=== PATIENT | male | born 1960 | race Caucasian/White ===

== ENCOUNTER 2018-11-10 00:02 | Inpatient (IN) | payer OTHER, MEDICAID ==
[~2018-11-10] VITALS: Ht 190.5 cm; Wt 112.1 kg
--- NOTE | 2018-11-10 00:07 | NUR ---
PT HOLD IS PLACED IN PAPER CHART
--- NOTE | 2018-11-10 00:15 | NUR ---
PT BIB AMBULANCE TODAY WITH C/C OF EAR PAIN. PER MEDIC, AROUND 11 PM LAST NIGHT, PT BEGAN HAVING A BEHAVIORAL EPISODE AND PUNCHING HIMSELF IN THE EARS. PT WAS GIVEN 5MG HALDOL, 1MG ATIVAN, 50MG BENADRYL X2, 50MG THORAZINE BY [facility]. UPON ARRIVAL OF MEDICS, PT WAS STILL AGRESSIVE, PT WAS GIVEN A TOTAL OF 10MG VERSED IM BY MEDICS. ECCHYMOSIS AND LOTS OF SWELLING NOTED TO RIGHT EAR, BLEEDING CONTROLLED. SWELLING ALSO NOTED TO LEFT EAR. PT IS ON A 5250 HOLD, WITH [facility] SITTER AT BEDSIDE. PT ARRIVED IN 4-POINT RESTRAINTS. PT IS SLEEPING IN [facility], RESP E/U, NAD NOTED. PT PLACED ON FULL CM AND PULSE OXIMETRY. AWAITING MSE.
--- NOTE | 2018-11-10 00:20 | NUR ---
REPORT GIVEN TO SUSANNAH KOROMA TO ASSUME CARE FOR PT.
[2018-11-10 00:46] LABS: BASOPHIL % 0.4 % (0-2); PLATELET COUNT 270 x10^3mcL (130-400); RED CELL DISTRIBUTION WIDTH 12.5 % (11.5-14.5)
[2018-11-10 01:07] LABS: CALCIUM 10.2 mg/dL (8.5-10.1); CARBON DIOXIDE 25.9 mmol/L (21-32); CHLORIDE SERUM 106 mmol/L (98-107); CREATININE SERUM 1.5 mg/dL (0.7-1.3); GFR1 51 mL/min; GLUCOSE SERUM 171 mg/dL (74-106); SODIUM SERUM 145 mmol/L (136-145)
[2018-11-10 01:11] LABS: ALBUMIN 3.8 g/dL (3.4-5.0); ALKALINE PHOSPHATASE 78 U/L (46-116); ALT/SGPT 46 U/L (16-63); AST/SGOT 26 U/L (15-37); BILIRUBIN TOTAL 0.7 mg/dL (0.20-1.00); TOTAL PROTEIN, SERUM 7.3 g/dL (6.4-8.2)
[2018-11-10 01:51] LABS: AMPHETAMINE QUAL UR NONE DETECTED (See below)
--- NOTE | 2018-11-10 02:05 | NUR ---
PATIENT TAKEN FOR CT/ HEAD. PT BREATHING E/U- NAD NOTED
--- NOTE | 2018-11-10 02:30 | NUR ---
PATIENT RETURNED FROM CT- STILL ASLEEP ON GURNEY- EASILY AROUSABLE. NAD NOTED. WILL CONTINUE TO MONITOR.
--- NOTE | 2018-11-10 03:20 | NUR ---
PATIENT AWAKE ON GURNEY- ATTEMPTING TO ORIENT SELF TO PLACE. BREATHING EVEN AND UNLABORED. WILL CONTINUE TO MONITOR.
--- NOTE | 2018-11-10 03:33 | NUR ---
PROVIDED REPORT TO WATSON AT [facility]. DR RUFFIN ADVISED THAT PT WILL BE ADMITTED.
--- NOTE | 2018-11-10 03:54 | NUR ---
MEDICATED WITH POTASSIUM PER MD ORDERS- RUNNING W/ 250 ML NS @ 125 ML/HR
--- NOTE | 2018-11-10 03:57 | NUR ---
DR RUFFIN MADE AWARE OF PATIENTS CHANGE IN VS. NO NEW ORDERS GIVEN.
[2018-11-10] MEDS ORDERED: RELION HUMUL100 U/M2 SQ (04:10)
[2018-11-10] MEDS ORDERED: NOR5 PO (04:11)
[2018-11-10] MEDS ORDERED: GLUCOPHAGE500 MG PO (04:12)
[2018-11-10] MEDS ORDERED: BAYER ASPIRIN R81 MG PO (04:12)
[2018-11-10] MEDS ORDERED: CRESTOR20 M1 PO (04:13)
[2018-11-10] MEDS ORDERED: FENOFIBRATE MI200 MG PO (04:14)
[2018-11-10] MEDS ORDERED: DILANTIN100 MG PO ×2 (04:14→04:15)
[2018-11-10] MEDS ORDERED: DEPAKOTE500 MG PO ×2 (04:15→04:16)
[2018-11-10] MEDS ORDERED: RISPERDAL0.5 MG PO (04:17)
[2018-11-10] MEDS ORDERED: [UNRECOGNIZED DRUG - OTHER] (04:18)
[2018-11-10] MEDS ORDERED: [UNRECOGNIZED DRUG - CODE] IM (04:19)
[2018-11-10] MEDS ORDERED: HALDOL DECA100 MG/ML IM (04:19)
--- NOTE | 2018-11-10 04:41 | NUR ---
MEDICATED PER MD ORDERS
--- NOTE | 2018-11-10 05:20 | NUR ---
PROVIDED REPORT TO SUSANNAH MONROY ICU FOR CONTINUED CARE OF PATIENT.
--- NOTE | 2018-11-10 05:50 | NUR ---
RECEIVED PT FROM ED. PT AOX1, ABLE TO FOLLOW COMMANDS, SPEECH GARBLED, ATTEMPTS TO MAKE NEEDS KNOWN. DENIES ULRICH/PAIN. BANDAGES ON B/L EARS, CDI. NO S/S SOB/DIFFICULTY BREATHING, ON RA. PULSES PALPABLE, NO EDEMA NOTED. ST ON MONITOR. HR 147. BOWEL SOUNDS ACTIVE. IV TO LAC, INTACT AND PATENT. BED IN LOWEST POSITION. WILL CONTINUE TO MONITOR.
[2018-11-10 06:12] VITALS: BP 127/100
[2018-11-10 07:12] VITALS: BP 143/74
--- NOTE | 2018-11-10 07:27 | NUR ---
RECIEVED REPORT FROM SUSANNAH MONROY TO ASSUME ALL CARES. ALL QUESTIONS AND CONCERNS ADDRESSED. AM ASSESSMENT DONE. PATIENT IS CURRENTLY SLEEPING. WILL ASSESS ORIENTATION WHEN HE WAKES UP. RESPIRATIONS ARE EQUAL AND SYMMETRICAL ON ROOM AIR. NO SIGNS OF RESP DISTRESS. DRESSING NOTED TO HEAD C/D/I AFTER PATIENT WAS FOUND HITTING HIMSELF IN THE HEAD, HEMATOMA WAS EVACUATED FROM RIGHT EAR AND SWELLING TO LEFT EAR IS PRESENT PER ED NURSE. WILL ASSESS LATER IF PATIENT ALLOWS. NS INFUSING TO LAC IV WITH NO SIGNS OF INFILTRATION NOTED. BILATERAL VELCRO WRISTS RESTRAINTS REMAIN IN PLACE TO PREVENT PATIENT FROM FALLING OUT OF BED AND FOR SAFETY. BED TO LOWEST POSITION, SIDE RAILS UP X3, CALL LIGHT WITHIN REACH. WILL CONTINUE TO MONITOR.
[2018-11-10 08:40] VITALS: Ht 190.5 cm; Wt 112.1 kg
--- NOTE | 2018-11-10 08:50 | NUR ---
PATIENT URINATED X1, HE IS INCONTINENT. PARTIAL LINEN CHANGED. PATIENT IS AWAKE/ALERT. PATIENT IS SELECTIVE IN ANSWERING QUESTIONS. ABLE TO MAKE NEEDS KNOWN. SPEECH IS QUIET AND A LITTLE GARBLED. PUPILS ARE 2MM AND BRISK. BILATERAL VELCRO RESTRAINTS REMOVED AT THIS TIME, PATIENT IS CURRENTLY QUIET AND COOPERATIVE. BREAKFAST PROVIDED AND NEEDS ASSISTANCE TO EAT. PATIENT ATE POORLY AND SPIT OUT THE CREAM OF WHEAT AND HAM, PT STATES HE DN'T LIKE IT. PATIENT WAS ABLE TO HAVE A FEW BITES OF EGGS AND SOME MILK. PATIENT TOLERATED WELL. WILL CONTINUE TO MONITOR.
[2018-11-10 09:06] LABS: BASOPHIL % 0.2 % (0-2); PLATELET COUNT 226 x10^3mcL (130-400); RED CELL DISTRIBUTION WIDTH 12.6 % (11.5-14.5)
[2018-11-10 09:12] LABS: CALCIUM 9.7 mg/dL (8.5-10.1); CARBON DIOXIDE 22.8 mmol/L (21-32); CHLORIDE SERUM 107 mmol/L (98-107); GFR1 > 60 mL/min; GLUCOSE SERUM 224 mg/dL (74-106); POTASSIUM SERUM 3.3 mmol/L (3.5-5.1); SODIUM SERUM 145 mmol/L (136-145)
--- NOTE | 2018-11-10 11:03 | NUR ---
PATIENT ROUNDS WITH DR. MOREAU AND RESIDENTS. CHARGE NURSE AND PRIMARY NURSE AT BEDSIDE. UPDATES PROVIDED AND POC DISCUSSED. WILL CONTINUE TO MONITOR.
[2018-11-10 11:06] VITALS: BP 131/72
--- NOTE | 2018-11-10 11:24 | NUR ---
DR. MOREAU, RESIDENTS, HEALTH CLAIMS EXAMINER AND PRIMARY RN AT BEDSIDE FOR MORNING ROUNDS. PLAN OF CARE DISCUSSED. WILL CONT TO MONITOR.
--- NOTE | 2018-11-10 14:00 | NUR ---
PATIENT SITTING UP IN BED EATING LUNCH WITH MINIMAL ASSIST. ATE APPROX 5% OF LUNCH. PATIENT REMAINS DROWSY AND A LITTLE CLUMPSY WITH HOLDING OBJECTS SUCH THE UTENSILS. WILL CONTINUE TO MONITOR.
--- NOTE | 2018-11-10 15:00 | NUR ---
PATIENT TOOK OUT HIS LAC IV, CATH TIP IS INTACT. WILL ATTEMPT TO START ANOTHER IV SOON. WILL CONTINUE TO MONITOR.
--- NOTE | 2018-11-10 16:42 | NUR ---
NEW 20 G IV INSERTED TO RIGHT HAND BY SUSANNAH MONCADA, FLUSHES WELL WITH GOOD BLOOD RETURN NOTED. PATIENT TOLERATED WELL. WILL CONTINUE TO MONITOR.
--- NOTE | 2018-11-10 17:30 | NUR ---
PATIENT FOUND TO HAVE URINATED LARGE AMOUNTS OF URINE IN BED. 16 F ESPINO CATH INSERTED VIA STERILE TECHNIQUE. APPROX 500 ML OF YELLOW URINE DRAINED VIA GRAVITY. UA AND URINE CULTURE SENT TO LAB. PATIENT TOLERATED WELL. WILL CONTINUE TO MONITOR.
[2018-11-10 18:43] LABS: CHOLESTEROL/HDL RATIO 4.2
[2018-11-10 19:20] LABS: microscopic required? YES; urine erythrocyte NEGATIVE (NEGATIVE)
--- NOTE | 2018-11-10 19:30 | NUR ---
PT RECEIVED A/O X1, ABLE TO MAKE NEEDS KNOWN AT TIMES, PT RESISTIVE TO NURSING CARE AND REFUSES TO ANSWER QUESTIONS, SEIZURE PRECAUTIONS IN PLACE. SINUS TACH, HR-120, NO S/S OF CP/PRESSURE OBSERVED. PULSES PALPABLE, EDEMA NOTED TO YESENIA EARS, DRSG TO RT EAR IN PLACE. BREATHING IS EVEN AND UNLABORED ON RA, NO RESP DISTRESS NOTED. ABD SOFT AND ROUND, BOWEL TONES ACTIVE X4 QUAD, NO N/V PRESENT. ESPINO CATH SECURED AND IN PLACE DRAINING TO GRAVITY, YELLOW URINE NOTED. GENERALIZED WEAKNESS, PT ABLE TO REPOSITION INDEPENDENTLY. IVF INFUSING WELL TO RH, SITE FREE FROM REDNESS OR SWELLING. NO ACUTE DISTRESS NOTED. BED IN LOWEST SETTING, SIDE RAILS UP X2, CALL LIGHT WITHIN REACH. WILL CONT TO MONITOR.
[2018-11-10 19:43] VITALS: BP 154/77
--- NOTE | 2018-11-10 20:35 | NUR ---
RECEIVED CALL FROM AM NURSE-JAYMIE. PER JAYMIE, DURING ROUNDS, DR MOREAU REQUESTED PT TO BE ON DILANTIN IV INSTEAD OF PO DUE TO POOR ORAL INTAKE. PHARMACIST-OMAR CALLED AND MADE AWARE. PER OMAR, "DILANTIN IV IS BEST WITH CENTRAL LINE, WILL ORDER LIQUID FORM INSTEAD."
--- NOTE | 2018-11-10 21:37 | NUR ---
PT IN NO ACUTE DISTRESS. CONTINUITY OF CARE ENDORSED TO ADRIANE DAVALOS, ALL QUESTIONS AND CONCERNS ADDRESSED.
--- NOTE | 2018-11-10 22:40 | NUR ---
PT IS RESTLESS AT THIS TIME. PT MEDICATED WITH ATIVAN PER EMAR. WILL CONT TO MONITOR.
[2018-11-10 23:15] VITALS: BP 171/93
--- NOTE | 2018-11-11 00:16 | NUR ---
ENTERED PT'S ROOM TO FIND ATTEMPING TO GET OUT OF BED. PT ASSISTED BACK IN BED. EDUCATED TO USE CALL LIGHT. PT REMAINS RESTLESS, PULLING EQUIPMENT OFF. PT MEDICATED WITH ATIVAN PER EMAR. WILL CONT TO MONITOR.
[2018-11-11 03:10] VITALS: BP 141/76
--- NOTE | 2018-11-11 04:47 | NUR ---
PT IS RESTLESS, ATTEMPTING TO GET OUT OF BED. PT MEDICATED WITH ATIVAN PER EMAR. PT EDUCATED ON IMPORTANCE OF REMAINING IN BED AND USING CALL LIGHT. BED IN LOW POSITION. CALL LIGHT IN REACH. WILL CONT TO MONITOR.
--- NOTE | 2018-11-11 05:10 | NUR ---
[employer] CLERK AT BEDSIDE FOR AM LAB DRAW
[2018-11-11 05:22] LABS: PLATELET COUNT 201 x10^3mcL (130-400); RED CELL DISTRIBUTION WIDTH 12.7 % (11.5-14.5)
[2018-11-11 05:33] LABS: CARBON DIOXIDE 24.6 mmol/L (21-32); CHLORIDE SERUM 108 mmol/L (98-107); CREATININE SERUM 0.7 mg/dL (0.7-1.3); GFR1 > 60 mL/min; GLUCOSE SERUM 174 mg/dL (74-106); MAGNESIUM 1.7 mg/dL (1.8-2.4); POTASSIUM SERUM 3.2 mmol/L (3.5-5.1); SODIUM SERUM 144 mmol/L (136-145)
--- NOTE | 2018-11-11 06:32 | NUR ---
DR. LINARES AT BEDSIDE. UPDATED ON PT'S STATUS. ALL QUESTIONS/CONCERNS ADDRESSED. MADE AWARE OF MOST RECENT LAB RESULTS
--- NOTE | 2018-11-11 07:02 | NUR ---
REPORT GIVEN TO DAMIAN DAVALOS AND ROSSI DAVALOS FOR CONTINUITY OF CARE. ALL QUESTIONS/CONCERNS ADDRESSED AT THIS TIME. ENDORSING ALL CARE
[2018-11-11 07:49] VITALS: BP 170/85
--- NOTE | 2018-11-11 07:56 | NUR ---
SPOKE TO WILLIAM, PHARMACIST AND DILANTIN IV IS OKAY TO GIVE THROUGH LARGE BORE PERIPHERAL IV. PATIENT CUREENTLY HAS A 20 G IV TO RIGHT HAND. PATIENT REMAINS REFUSING TO TAKE ORAL MEDICATIONS. WILL NOTIFY DR. SEPULVEDA REGARDING CHANGING DILANTIN TO IV. WILL CONTINUE TO MONITOR.
--- NOTE | 2018-11-11 10:30 | NUR ---
PATIENT ROUNDS WITH DR. MOREAU AND RESIDENTS. CHARGE NURSE AND PRIMARY NURSE AT BEDSIDE. UPDATES PROVIDED AND POC DISCUSSED. WILL CONTINUE TO MONITOR.
[2018-11-11 12:00] VITALS: BP 187/89
--- NOTE | 2018-11-11 13:30 | NUR ---
REPORT RECIEVED FROM ROSSI DAVALOS. UPDATES PROVIDED, ALL QUESTIONS AND CONCERNS ADDRESSED. WILL RESUME CARE.
--- NOTE | 2018-11-11 13:40 | NUR ---
PATIENT UP TO BSC WITH ASSIST FOR BOWEL MOVEMENT. PATIENT REFUSING TO GET UP AND GO TO BED AT THIS TIME AND IS BECOMING AGITATED AND AGRESSIVE, STATING "GONNA F'IN PUNCH YOU". HALDOL IVP GIVEN (SEE EMAR). SECURITY AT BEDSIDE. PATIENT REMAINS REFUSING TO GET BACK TO BED AND REMAINS ON BSC. WILL CONTINUE TO MONITOR.
--- NOTE | 2018-11-11 13:46 | NUR ---
PATIENT AMBULATED TO BED HIMSELF WITH SLOW GAIT AND FELL ASLEEP. WILL CONTINUE TO MONITOR.
--- NOTE | 2018-11-11 14:20 | NUR ---
REPORT GIVEN TO MAYTE DAVALOS. PT WILL BE GOING TO ROOM 239-B. PT BEING TRANSFERRED VIA ICU BED, ACCOMPANIED BY ROSSI DAVALOS AND I. NO COMPLICATIONS AT THIS TIME.
[2018-11-11 14:40] VITALS: BP 144/75
--- NOTE | 2018-11-11 14:40 | NUR ---
ADMITTED VITALS BP: 144/75, MAP: 97, TEMP: 99.6, HR: 107, RR: 18, O2 SAT 95% ON ROOM AIR.
--- NOTE | 2018-11-11 14:40 | NUR ---
RECIEVED PT FROM ICU. PT ARRIVED VIA BED ACCOMPANIED BY NURSE. PT IS RESTING WITH EYES CLOSED. RESPRIATIONS EVEN AND UNLABORED ON ROOM AIR. PT AROUSABLE TO STIMULI. LUNG SOUNDS CLEAR BILATERALLY. SWELLING NOTED TO B/L EAR WITH LARGE AMOUNTS OF SWELLING TO RIGHT EAR. ESPINO CATHETER PRESENT DRAINING YELLOW URINE. IV SITE TO RIGHT HAND IS PATENT WITH NO SIGNS OF ERYTHEMA OR SWELLING WITH FLUIDS INFUSING. PULSES PALPABLE. PT LOOKS TO BE IN NO ACUTE DISTRESS AT THIS TIME. SITTER AT BEDSIDE. CALL LIGHT WITHIN REACH. WILL CONINTUE TO MONITOR.
--- NOTE | 2018-11-11 14:50 | NUR ---
PATIENT TRANSFERRED ON ICU BED TO [facility]. NO INCIDENCE OCCURRED UPON TRANSFER.
--- NOTE | 2018-11-11 15:25 | NUR ---
PT STARTED YELLING AND PULLED OUT IV. STARTED NEW IV TO LEFT HAND, PT TOLERATED WELL AND IS NOW LAYING IN BED WITH HOB UP RESTING. PT LOOKS TO BE IN NO ACUTE DISTRESS AT THIS TIME. SITTER AT BEDSIDE. WILL CONITNUE TO MONITOR.
--- NOTE | 2018-11-11 16:45 | NUR ---
PT IN AND OUT OF DROWSINESS. PT OPENED EYES AND REQUESTED TO HAVE SOME WATER, BY THE TIME WATER WAS PROVIDED, PT FELL BACK ASLEEP. PT WOKE UP AGAIN ABOUT 2 MINUTES LATER. PT DID NOT KNOW WHERE HE WAS, THE YEAR AND COULD NOT STATE HIS NAME. ORIENTED PT TO UNIT AND TIME WELL SELF THEN PT FELL BACK TO SLEEP. PT AWOKE AGAIN AND PT WAS ASKED IF HE WOULD LIKE TO EAT DINNER, PT REFUSED AND WENT BACK TO SLEEP. PT BLOOD SUGAR AT 167 AND ACCORDING TO SLIDING SCALE SHOULD BE 3 UNIT REG INSULIN. INFORMED DR. IBARRA WHO INFORMED TO HOLD INSULIN. PT LOOKS TO BE IN NO ACUTE DISTRESS AT THIS TIME. SITTER AT BEDSIDE. WILL CONTINUE TO MONITOR.
--- NOTE | 2018-11-11 18:25 | NUR ---
PT IS AWAKE BUT LETHARGIC. PT ORIENTED TO PERSON AND PLACE BUT NOT TO TIME. PT REQUESTING TO EAT AND DRINK WATER. OFFERED PT WATER AND PT ABLE TO DRINK AND SWALLOWED WITH NO DIFFICULTY. PT DINNER TRAY AT BEDSIDE. OFFERED PT APPLESAUCE TO ASSESS SWALLOWING. PT ABLE TO SWALLOW. OFFERED PT MASHED POTATES FROM DINNER TRAY AND PT SIT IT OUT INTO [place] AND REQUESTED MORE APPLESAUCE. PT HAD 3 MORE BITES OF APPLESAUCE AND THEN REFUSED TO EAT ANYMORE. PT LOOKS TO BE IN NO ACUTE DISTRESS AT THIS TIME AND DENIES ANY PAIN. IV SITE PATENT WITH NO SIGNS OF ERYTHEMA OR SWELLING WITH IV FLUIDS INFUSING. SITTER AT BEDSIDE. ESPINO CATHER CARE PROVIDED. WILL ENODRSE TO ONCOMING SHIFT
[2018-11-11 18:29] VITALS: BP 148/82
--- NOTE | 2018-11-11 19:25 | NUR ---
CARE ASSUMED FROM OUTGOING RN. PT RESTING COMFORTABLY IN BED. SITTER AT BEDSIDE. NO ACUTE DISTRESS NOTED. EVEN AND UNLABORED RESPIRATIONS ON RA. IV PATENT AND INTACT RUNNING MEDICATIONS PER EMAR. ESPINO PATENT AND INTACT DRAINING DARK YELLOW URINE. BED IN LOWEST POSITION. SEIZURE PRECAUTION IN PLACE. SIDE RAILS UPX2. CALL LIGHT WITHIN REACH. WILL CONTINUE TO MONITOR.
[2018-11-11 21:52] VITALS: BP 160/83
--- NOTE | 2018-11-11 22:10 | NUR ---
PT REFUSED PO MEDICATIONS. BP: 160/83. MADE AWARE. WILL CONTINUE TO MONITOR.
--- NOTE | 2018-11-12 01:01 | NUR ---
PT RESTING COMFORTABLY IN BED. NO ACUTE DISTRESS NOTED. SITTER AT BEDSIDE. EVEN AND UNLABORED RESPIRATIONS ON RA. IV PATENT AND INTACT RUNNING FLUIDS PER EMAR. PT HAVING HALLUCINATIONS, TALKING TO HIMSELF. ESPINO PATENT WITH DARK YELLOW URINE. BED IN LOWEST POSITION. SEIZURE PRECAUTION IN PLACE. SIDE RAILS UP X2. WILL CONTINUE TO MONITOR.
[2018-11-12 06:25] VITALS: BP 166/97
--- NOTE | 2018-11-12 06:36 | NUR ---
PT RESTED COMFORTABLY IN BED THROUGHOUT THE SHIFT. SITTER AT BEDSIDE. PT WAS CALM THROUGHOUT THE SHIFT. ALL NEEDS TENDED TO AND MET. REFUSED PO MEDICATIONS AT THIS TIME. IV PATENT AND INTACT RUNNING FLUIDS PER EMAR. BS CHECKED AND COVERED PER SLIDING SCALE. ESPINO PATENT AND INTACT WITH YELLOW URINE OUTPUT NOTED. BED IN LOWEST POSITION. SIDE RAILS UPX2. CALL LIGHT WITHIN REACH. WILL ENDORSE TO ONCOMING SHIFT.
[2018-11-12 07:13] LABS: BASOPHIL % 0.2 % (0-2); PLATELET COUNT 205 x10^3mcL (130-400); RED CELL DISTRIBUTION WIDTH 12.6 % (11.5-14.5)
[2018-11-12 07:35] LABS: CALCIUM 8.6 mg/dL (8.5-10.1); CARBON DIOXIDE 25.2 mmol/L (21-32); CHLORIDE SERUM 105 mmol/L (98-107); CREATININE SERUM 0.7 mg/dL (0.7-1.3); GFR1 > 60 mL/min; GLUCOSE SERUM 134 mg/dL (74-106); MAGNESIUM 1.8 mg/dL (1.8-2.4); SODIUM SERUM 142 mmol/L (136-145)
[2018-11-12 09:45] VITALS: BP 178/96
[2018-11-12 09:52] VITALS: BP 178/96
--- NOTE | 2018-11-12 10:33 | NUR ---
INFORMED DR BOB OF PATIENT REFUSING ALL PO MEDS THIS AM. ALSO REPORTED BP 178/96 THIS AM, PER DR HERNANDES TO GIVE PRN HYDRALAZINE. WILL ALSO ORDER UDS, WILL COLLECT URINE AND SEND TO LAB.
[2018-11-12 10:50] VITALS: BP 152/87
--- NOTE | 2018-11-12 11:20 | NUR ---
PATIENT TRANSFERRED FROM ROOM 246B TO ROOM 243B. SITTER AT BEDSIDE.
--- NOTE | 2018-11-12 13:05 | NUR ---
PATIENT PULLED OUT IV, KRIDER WAS IN PROGRESS. NEW IV STARTED TO LFA 22G, NS FLUSHED, NO REDNESS/SWELLING. PAGED DR BOB, NEW ORDER TO BE PLACED FOR KRIDER W/ LIDOCAINE INSTEAD. WILL ADMINISTER.
--- NOTE | 2018-11-12 14:10 | NUR ---
PATIENT REFUSING TO EAT LUNCH, DENIES FEELING HUNGRY.
[2018-11-12 17:01] VITALS: BP 161/93
--- NOTE | 2018-11-12 18:55 | NUR ---
DR CONDE AT BEDSIDE.
--- NOTE | 2018-11-12 20:00 | NUR ---
PT IS AWAKE AND ORIENTED X1. PT HAS HX OF SZ DISORDER, AND SCHIZOPHRENIA. PT IS CALM AT THIS TIME. NO SIGNS OF ULRICH OR DIZZINESS AT THIS TIME. PT HAS PALPABLE PULSES BILAT ALL EXTREMITIES. PT HAS EDEMA NOTED TO RIGHT EAR. PT HAS CLEAR LUNG SOUNDS. RESPIRATIONS EVEN AND UNLABORED ON ROOM AIR. PT DENIES SOB. PT HAS ACTIVE BOWEL SOUNDS. PT DENIES ABD PAIN AND N/V AT THIS TIME. PT HAS ESPINO IN PLACE. PT HAS GEN WEAKNESS. RIGHT EAR SWELLING WITH SCAB NOTED;HEALING. PT HAS IV TO LFA WITH NS RUNNING AT 100 ML/HR. PT DENIES PLAN FOR SELF HARM OR TO OTHERS. PT HAS HX OF HALLUCINATIONS. SITTER AT BEDSIDE FOR SAFETY. NO SIGNS OF PAIN OR DISCOMFORT. NO SIGNS OF DISTRESS. WILL CONTINUE TO MONITOR.
[2018-11-12 20:25] VITALS: BP 158/91
--- NOTE | 2018-11-12 23:15 | NUR ---
PT REMAINS IN BED AT THIS TIME. PT WATCHING TELEVISION. PT NOTED TO HAVING CONVERSATION WITH SELF. SITTER AT BEDSIDE FOR SAFETY. WILL CONTINUE TO MONITOR.
[2018-11-13] VITALS (11 sets, daily range): BP systolic 127–179; BP diastolic 70–97
--- NOTE | 2018-11-13 02:39 | NUR ---
PT REMAINS IN BED AT THIS TIME RESTING. SITTER REMAINS AT BEDSIDE FOR SAFETY. NO SIGNS OF DISTRESS. WILL CONTINUE TO MONITOR.
--- NOTE | 2018-11-13 05:52 | NUR ---
PT SBP 166. PRN HYDRALAZINE TO BE GIVEN. PT TO BE PLACED ON TELE#27. WILL CONTINUE TO MONITOR.
--- NOTE | 2018-11-13 06:09 | NUR ---
PT REFUSES TO BE PLACED ON TELE MONITOR AT THIS TIME. PT SHOWING AGGRESSIVE BEHAVIOR, CLENCHED FISTS NOTED AND SPEAKING PROFANITIES. WILL CONTINUE TO MONITOR.
--- NOTE | 2018-11-13 06:09 | NUR ---
PT REFUSES ACCU CHECKS AT THIS TIME; SHOWING MIDDLE FINGER AND STATING "I DONT WANT ANY OF THAT"
--- NOTE | 2018-11-13 06:17 | NUR ---
PRN ATIVAN GIVEN AT THIS TIME FOR AGITATION. WILL CONTINUE TO MONITOR.
--- NOTE | 2018-11-13 06:22 | NUR ---
PT CONTINUES TO REFUSE TELE PLACEMENT STATING "I DONT NEED THAT." TELE RETURNED TO TELE STATION AT THIS TIME. WILL CONTINUE TO MONITOR.
[2018-11-13 06:32] LABS: BASOPHIL % 0.2 % (0-2); PLATELET COUNT 222 x10^3mcL (130-400); RED CELL DISTRIBUTION WIDTH 12.7 % (11.5-14.5)
[2018-11-13 06:51] LABS: CARBON DIOXIDE 28.3 mmol/L (21-32); CHLORIDE SERUM 103 mmol/L (98-107); CREATININE SERUM 0.7 mg/dL (0.7-1.3); GFR1 > 60 mL/min; GLUCOSE SERUM 122 mg/dL (74-106); MAGNESIUM 1.7 mg/dL (1.8-2.4); PHOSPHOROUS 2.8 mg/dL (2.5-4.9); POTASSIUM SERUM 3.3 mmol/L (3.5-5.1); SODIUM SERUM 142 mmol/L (136-145)
--- NOTE | 2018-11-13 06:56 | NUR ---
PT CALM AND RESTING IN BED AT THIS TIME. BP DECREASED 137/81. PRN HYDRALAZINE NOT GIVEN. TELE#[address] AT THIS TIME. NO SIGNS OF DISTRESS.
--- NOTE | 2018-11-13 07:10 | NUR ---
REPORT RCD FROM SUSANNAH SCHREIBER. NS 100 ML/HR TO LFA INFUSING WITHOUT COMPLICATIONS. SITTER AT BEDSIDE. PATIENT ASLEEP, REGULAR RESPS. BED LOW. ESPINO IN PLACE DRAINING YELLOW URINE TO GRAVITY. WILL MONITOR.
--- NOTE | 2018-11-13 07:40 | NUR ---
SHIFT ASSESSMENT PERFORMED AND DOCUMENTED. PATIENT MUMBLES AND IS DIFFICULTY TO UNDERSTAND. HE IS HOSTILE VERBALLY AND THREATENING TO NURSE. SITTER AT BEDSIDE.
--- NOTE | 2018-11-13 10:33 | NUR ---
PATIENT APPEARS AGITATED, THREATENING NURSE THAT HE WILL "FUCK YOU UP", POINTING FINGER, MAKING A GUN WITH HIS HAND AND POINTING AT NURSE. REFUSES ANY PO MEDICATIONS OR IM MEDICATIONS. DISCUSSED WITH CHARGE NURSE. SECURITY CALLED WHO PROVIDED SUPPORT TO GIVE IM INJECTION OF COGENTIN PER JUN WELL IV 1 MG ATIVAN FOR AGITATION PER JUN AND HYDRALAZINE IV PER JUN FOR BP 179/94 BECAUSE PATIENT WILL NOT TAKE PO BP MED. PATIENT TOLERATED MEDICATION ADMINISTRATION WITH SECURITY PRESENT. WILL MONITOR.
--- NOTE | 2018-11-13 11:52 | NUR ---
PATIENT ASLEEP, REGULAR RESPS.
--- NOTE | 2018-11-13 12:40 | NUR ---
BP RECHECK AFTER HYDRALAZINE, DOUGH PANNER STATES BP 127/72, HR 88 AT 1220 PM. PATIENT CONTINUES TO SLEEP, REGUALR RESPS.
[2018-11-13] MEDS ORDERED: NOR5 PO (14:12)
--- NOTE | 2018-11-13 15:15 | NUR ---
Received 5150 forms via fax at [facility]. S/W BELTRAN Carrington requesting clinical packet be faxed to [facility], . Will begin looking for Psych placement upon receiving packet. [facility]: [phone]
--- NOTE | 2018-11-13 15:17 | NUR ---
RECEIVED CALL FROM [place] AT DR. ROMERO'S OFFICE REGARDING THE PATIENT. DR. ROMERO WOULD LIKE UPDATE ON THE PATIENT PATIENT'S BROTHER HAS BEEN TRYING TO LOCATE HIM. PAGEGATE TO DR. BOB AND PROVIDED CONTACT INFORMATION FOR DR. ROMERO, .
--- NOTE | 2018-11-13 15:33 | NUR ---
Received packet via fax. [facility] has begun looking for placement: Contacted the following facilities: [facility]: s/w Kavya, states pending D/C will review packet, will let us know if they can accept pt shortly. Will continue to contact other facilities. Will contact with updates.
--- NOTE | 2018-11-13 16:07 | NUR ---
S/W Carmenza at [facility], states will review packet and contact if able to accept pt.
--- NOTE | 2018-11-13 17:04 | NUR ---
Received call from Carmenza at [facility], she states that they may be able to accept pt tomorrow am, the unit is currently full. States they will f/u tomorrow am to see if pt still needs placement. States they will hold onto the packet.
--- NOTE | 2018-11-13 19:36 | NUR ---
REPORT GIVEN TO SUSANNAH DA SILVA. PATIENT AWAKE, NON-COMMUNICATIVE. NS 100 ML/HR INFUSING TO LFA WITHOUT COMPLICACTIONS. SITTER IN ROOM. BED LOW. ESPINO IN PLACE DRAINING DARK YELLOW URINE TO GRAVITY. PATIENT SHOWED NURSE MIDDLE FINGER WHEN SAYING GOODBYE. CARE ENDORSED.
--- NOTE | 2018-11-13 21:42 | NUR ---
PATIENT RECEIVED RESTING IN BED BUT EASILY AROUSABLE TO NAME CALLING. ALERT, ORIENTED X-2. ON SEIZURE PRECAUTION. RESPIRATION EVEN AND UNLABORED, ON ROOM AIR. ONGOING 0.9% NS AT 100 CC/HR INFUSING WELL AT THE LEFT FOREARM. SWELLING TO RIGHT EAR. ESPINO CATHETER TO GRAVITY DRAINING YELLOW COLORED URINE. GENERALIZED WEAKNESS TO EXTREMITIES. RESPONDING TO INTERNAL STIMULI- TALKING TO SELF, LABILE MOOD, UNPREDICTABLE, HOSTILE, UNCOOPERATIVE. DENIES SUICIDAL AND HOMICIDAL IDEATION. DENIES AUDITORY AND VISUAL HALLUCINATION. ON TELE #27. NO COMPLAIN OF PAIN. 1:1 SITTER AT THE BEDSIDE FOR SAFETY. WILL CONTINUE TO MONITOR.
--- NOTE | 2018-11-13 23:16 | NUR ---
PATIENT REFUSED HIS HS DOSE OF APRESOLINE 25 MG PO, LIPITOR 20 MG PO AND ZYPREXA ZYDIS 10 MG PO. EXPLAINED THE NECESSITY OF THE ORDER AND IMPORTANCE TO HIS CARE. WILL INFORM MD. WILL CONTINUE TO MONITOR.
--- NOTE | 2018-11-14 01:00 | NUR ---
PATIENT PULLED OUT HIS IV. REFUSED RE-INSERTION AT THIS TIME. THREATENING STAFF. WILL ATTEMPT LATER.
--- NOTE | 2018-11-14 02:01 | NUR ---
PATIENT ANXIOUS, THREATENING STAFF, LABILE, UNPREDICTABLE, UNCOOPERATIVE, REFUSED TO TAKE PO MEDICATIONS DESPITE PROMPTING AND ENCOURAGEMENT. ATIVAN 1 MG IM GIVEN ORDERED. WILL CONTINUE TO MONITOR.
[2018-11-14 05:54] VITALS: BP 156/84
--- NOTE | 2018-11-14 06:04 | NUR ---
PATIENT AWAKE IN BED. APPEARS CALM, STILL RESPONDING TO INTERNAL STIMULI- TALKING TO SELF. ATTEMPTED TO RE-INSERT A NEW IV ON THE RIGHT WRIST. 1:1 SITTER AT THE BEDSIDE FOR SAFETY. ASSISTED WITH NEEDS. SAFETY OBSERVED. REORIENTATION NEEDED.
[2018-11-14 07:26] VITALS: BP 142/88
--- NOTE | 2018-11-14 07:39 | NUR ---
RECEIVED AWAKE, RESPONDING VERBALLY. NO ACUTE DISTRESS NOTED. NO C/O PAIN OR DISCOMFORT. SITTER AT BEDSIDE. CALL LIGHT WITHIN REACH. WILL CONTINUE WITH PLAN OF CARE.
--- NOTE | 2018-11-14 09:58 | NUR ---
VERY AGITATED,CURSING AND TALKING TO HIMSELF. SPITTING OUT FOOD, STATED WILL NOT TAKE ANY MEDICATION OR INJECTIONS. WILL TRY AGAIN LATER.
--- NOTE | 2018-11-14 10:34 | NUR ---
PT REFUSED TO EAT, REFUSED ALL PO MEDS AT THIS TIME. TALKING TO HIMSELF AND WHEN APPROACHED HE STARTS TO CURSEAND USE FOUL LANGUAGE.
[2018-11-14 11:44] VITALS: BP 140/81
--- NOTE | 2018-11-14 14:08 | NUR ---
DOSING OFF AND ON, NO DISTRESS NOTED. SITTER AT BEDSIDE.
--- NOTE | 2018-11-14 17:29 | NUR ---
S/W Juanjo from [place], stated that they have a discharge and he will call Rajendra for update on patient
[2018-11-14 17:39] VITALS: BP 175/95
--- NOTE | 2018-11-14 18:47 | NUR ---
PT REMAINS IN NO RESP. DISTRESS. MUMBLING AND TALKING TO HIMSELF MOST OF THE TIME. NO VOICED SI, NO C/O PAIN OR DISCOMFORT.IVF INFUSING WELL AND SITE CLEAR. SITTER AT BEDSIDE. CALL LIGHT WITHIN REACH. WILL BE ENDORSED TO INCOMING SHIFT.
--- NOTE | 2018-11-14 19:45 | NUR ---
SONIYA RN FROM [facility] CALLED AND ACCEPTING TO TRANSFER PATIENT. REPORT GIVEN. DR PEOPLES PAGED TO GET DISCHARGE ORDERS.
--- NOTE | 2018-11-14 20:22 | NUR ---
PATIENT RECEIVED ASLEEP IN BED BUT EASILY AROUSABLE TO NAME CALLING, ORIENTED TO PERSON. RESPIRATION EVEN AND UNLABORED, ON ROOM AIR. RESPIRATION EVEN AND UNLABORED, ON ROOM AIR. IV SITE TO LEFT WRIST PATENT AND INTACT WITH ONGOING 0.9% NS AT 100 CC/HR INFUSING WELL. SWELLING TO RIGHT EAR. ESPINO CATHETER TO GRAVITY DRAINING YELLOW COLORED URINE. GENERALIZED WEAKNESS. POOR APPETITE. NO SIGN OF PAIN. ON 1:1 SITTER FOR SAFETY. WILL CONTINUE TO MONITOR.
[2018-11-14 20:43] VITALS: BP 130/66
--- NOTE | 2018-11-14 21:27 | NUR ---
PATIENT TRANSFERRED TO [facility], ROOM 61-A. REPORT GIVEN TO SONIYA DAVALOS. DISCONTINUED IV SITE AND ESPNIO CATHETER ORDERED. TRANSFER PACKET AND REPORT GIVEN TO [employer]. PATIENT CALM AND COOPERATIVE AT THIS TIME, RTIS- TALKING TO SELF. TRANSPORTED VIA [facility].
== END 2018-11-14 21:30 | DRG 604 ==
LOC: ED 00:02 → MU 03:25 → IC 03:25 → ED 03:25 → IC 05:18 → DU 11-11 14:55 → MU 11-11 14:57 → DU 11-13 06:04 → MU 11-14 13:27
PROVIDERS: Emergency Medicine; ADMIT General Practice
PROC: 09900ZZ Drainage of Right External Ear, Open Approach (ICD-10-PCS; principal; 2018-11-10)
DX: S00.431A Contusion of right ear, initial encounter (principal); N17.0 Acute kidney failure with tubular necrosis; S00.432A Contusion of left ear, initial encounter; F20.9 Schizophrenia, unspecified; E87.6 Hypokalemia; E86.0 Dehydration; E11.9 Type 2 diabetes mellitus without complications; I10 Essential (primary) hypertension; G40.909 Epilepsy, unspecified, not intractable, without status epilepticus; K21.9 Gastro-esophageal reflux disease without esophagitis; Z68.29 Body mass index [BMI] 29.0-29.9, adult; Z79.82 Long term (current) use of aspirin; Z79.4 Long term (current) use of insulin; Z79.84 Long term (current) use of oral hypoglycemic drugs; X58.XXXA Exposure to other specified factors, initial encounter; Y92.230 Patient room in hospital as the place of occurrence of the external cause
CPT/HCPCS: 82962; 97530-GP; G0378; G0480; J0360; J0515; J1165; J1630; J2001; J2060; J3475; J3480; J3490; J7030; J7050; Q0092